=== PATIENT | female | born 1945 | race Caucasian/White ===

== ENCOUNTER 2016-09-23 13:11 | Emergency (ER) | payer OTHER, MEDICAID ==
[~2016-09-23 13:11] MED LIST: ALLERGY10 M3 PO; LOSARTAN POTASS1 TA6 PO; METFORMIN HCL500 MG PO; PROPRANOLOL HCL20 MG PO
[2016-09-23 14:17] LABS: microscopic required? YES; urine erythrocyte NEGATIVE (NEGATIVE)
[2016-09-23 14:21] LABS: BASOPHIL % 0.5 % (0-2); PLATELET COUNT 248 x10^3mcL (130-400); RED CELL DISTRIBUTION WIDTH 13.6 % (11.5-14.5)
[2016-09-23 14:38] LABS: CALCIUM 9.2 mg/dL (8.5-10.1); CHLORIDE SERUM 105 mmol/L (98-107); CREATININE SERUM 0.8 mg/dL (0.6-1.0); GFR1 > 60 mL/min; GLUCOSE SERUM 104 mg/dL (74-106); POTASSIUM SERUM 3.5 mmol/L (3.5-5.1); SODIUM SERUM 145 mmol/L (136-145)
[2016-09-23 14:43] LABS: ALBUMIN 3.7 g/dL (3.4-5.0); ALKALINE PHOSPHATASE 85 U/L (46-116); ALT/SGPT 28 U/L (14-59); AST/SGOT 18 U/L (15-37); BILIRUBIN TOTAL 0.6 mg/dL (0.20-1.00); TOTAL PROTEIN, SERUM 7.5 g/dL (6.4-8.2)
[2016-09-23 15:36] VITALS: BP 123/51
== END 2016-09-23 15:36 | disposition home or self-care (01) ==
LOC: ED 13:11
PROVIDERS: Emergency Medicine
DX: J18.9 Pneumonia, unspecified organism (principal); M79.1 Myalgia; I10 Essential (primary) hypertension; Z88.2 Allergy status to sulfonamides
CPT/HCPCS: 83880; J0696; J1885; J7613; J7644

== ENCOUNTER 2016-10-14 07:10 | Emergency (ER) | payer OTHER, MEDICAID ==
[~2016-10-14] VITALS: Ht 172.7 cm; Wt 79.8 kg
[2016-10-14 07:44] LABS: BASOPHIL % 0.8 % (0-2); PLATELET COUNT 239 x10^3mcL (130-400); RED CELL DISTRIBUTION WIDTH 13.7 % (11.5-14.5)
[2016-10-14 07:55] LABS: CALCIUM 9.1 mg/dL (8.5-10.1); CARBON DIOXIDE 24.6 mmol/L (21-32); CHLORIDE SERUM 104 mmol/L (98-107); CREATININE SERUM 0.9 mg/dL (0.6-1.0); GFR1 > 60 mL/min; GLUCOSE SERUM 169 mg/dL (74-106); POTASSIUM SERUM 3.8 mmol/L (3.5-5.1); SODIUM SERUM 140 mmol/L (136-145)
[2016-10-14 08:00] LABS: ALBUMIN 3.8 g/dL (3.4-5.0); BILIRUBIN TOTAL 0.42 mg/dL (0.20-1.00); TOTAL PROTEIN, SERUM 7.3 g/dL (6.4-8.2)
[2016-10-14 08:01] LABS: ALKALINE PHOSPHATASE 105 U/L (46-116); ALT/SGPT 29 U/L (14-59); AST/SGOT 16 U/L (15-37); CHOLESTEROL 207 mg/dL (<200); CHOLESTEROL/HDL RATIO 3.7; HDL CHOLESTEROL 56 mg/dL (40-60); LIPASE 129 IU/L (73-393); TRIGLYCERIDES 137 mg/dL (<150)
[2016-10-14 08:08] LABS: T3 TOTAL 1.13 ng/mL
[2016-10-14 08:19] LABS: FREE T4 0.85 ng/dL (0.76-1.46); FREE THYROXINE INDEX 2.2 ug/dL (1.4-4.5); T4(THYROXINE) 6.4 ug/dL (4.7-13.3)
[2016-10-14 08:38] LABS: microscopic required? YES; urine erythrocyte NEGATIVE (NEGATIVE)
[2016-10-14 09:27] VITALS: BP 126/75
== END 2016-10-14 09:27 | disposition home or self-care (01) ==
LOC: ED 07:10
PROVIDERS: Specialist
DX: I10 Essential (primary) hypertension (principal)
CPT/HCPCS: 83880; 84439; J7030; Q0092

== ENCOUNTER 2016-11-04 18:50 | Emergency (ER) | payer OTHER, MEDICAID ==
[~2016-11-04] VITALS: Ht 172.7 cm; Wt 71.0 kg
[2016-11-04 21:20] VITALS: BP 135/65
== END 2016-11-04 21:20 | disposition home or self-care (01) ==
LOC: ED 18:50
DX: R00.2 Palpitations (principal); R11.0 Nausea; I10 Essential (primary) hypertension; I48.91 Unspecified atrial fibrillation; Z79.1 Long term (current) use of non-steroidal anti-inflammatories (NSAID); Z79.899 Other long term (current) drug therapy; Z88.2 Allergy status to sulfonamides

== ENCOUNTER 2016-12-26 22:00 | Emergency (ER) | payer OTHER, MEDICAID ==
[2016-12-27 00:05] LABS: CALCIUM 9.1 mg/dL (8.5-10.1); CARBON DIOXIDE 30.2 mmol/L (21-32); POTASSIUM SERUM 3.7 mmol/L (3.5-5.1)
[2016-12-27 00:07] LABS: BASOPHIL % 0.6 % (0-2); PLATELET COUNT 196 x10^3mcL (130-400); RED CELL DISTRIBUTION WIDTH 14.3 % (11.5-14.5)
[2016-12-27 00:18] LABS: ALBUMIN 3.7 g/dL (3.4-5.0); BILIRUBIN TOTAL 0.3 mg/dL (0.20-1.00); T4(THYROXINE) 5.6 ug/dL (4.7-13.3); TOTAL PROTEIN, SERUM 7.2 g/dL (6.4-8.2)
[2016-12-27 01:49] VITALS: BP 133/72
== END 2016-12-27 01:48 | disposition home or self-care (01) ==
LOC: ED 22:00
PROVIDERS: Emergency Medicine
DX: R00.0 Tachycardia, unspecified (principal); Z88.2 Allergy status to sulfonamides
CPT/HCPCS: 36415

== ENCOUNTER 2016-12-28 14:35 | Emergency (ER) | payer OTHER, MEDICAID ==
[2016-12-28 15:37] LABS: BASOPHIL % 0.6 % (0-2); CALCIUM 9.1 mg/dL (8.5-10.1); CARBON DIOXIDE 27.5 mmol/L (21-32); CHLORIDE SERUM 104 mmol/L (98-107); CREATININE SERUM 0.9 mg/dL (0.6-1.0); GFR1 > 60 mL/min; GLUCOSE SERUM 138 mg/dL (74-106); PLATELET COUNT 227 x10^3mcL (130-400); POTASSIUM SERUM 3.9 mmol/L (3.5-5.1); RED CELL DISTRIBUTION WIDTH 14.5 % (11.5-14.5); SODIUM SERUM 136 mmol/L (136-145)
[2016-12-28 15:41] LABS: ALBUMIN 3.9 g/dL (3.4-5.0); ALKALINE PHOSPHATASE 112 U/L (46-116); ALT/SGPT 24 U/L (14-59); AST/SGOT 15 U/L (15-37); BILIRUBIN TOTAL 0.5 mg/dL (0.20-1.00); TOTAL PROTEIN, SERUM 7.6 g/dL (6.4-8.2)
[2016-12-28 17:43] VITALS: BP 118/62
== END 2016-12-28 17:43 | disposition home or self-care (01) ==
LOC: ED 14:35
PROVIDERS: Emergency Medicine
DX: I48.0 Paroxysmal atrial fibrillation (principal); I10 Essential (primary) hypertension; Z88.2 Allergy status to sulfonamides
CPT/HCPCS: 83880; J3490; Q0092

== ENCOUNTER 2017-04-20 14:06 | Emergency (ER) | payer OTHER, MEDICAID ==
[2017-04-20 15:42] VITALS: BP 123/65
== END 2017-04-20 15:42 | disposition home or self-care (01) ==
LOC: ED 14:06
DX: J02.9 Acute pharyngitis, unspecified (principal); I10 Essential (primary) hypertension; I48.91 Unspecified atrial fibrillation; Z88.2 Allergy status to sulfonamides; Z86.79 Personal history of other diseases of the circulatory system

== ENCOUNTER 2018-02-12 02:46 | Emergency (ER) | payer OTHER, MEDICAID ==
[~2018-02-12] VITALS: Ht 172.7 cm; Wt 82.1 kg
[2018-02-12 02:53] VITALS: Ht 172.7 cm; Wt 82.1 kg
[2018-02-12 03:59] LABS: BASOPHIL % 0.7 % (0-2); PLATELET COUNT 214 x10^3mcL (130-400); RED CELL DISTRIBUTION WIDTH 12.4 % (11.5-14.5)
[2018-02-12 04:02] LABS: T3 TOTAL 1.13 ng/mL
[2018-02-12 04:21] LABS: ALBUMIN 3.9 g/dL (3.4-5.0); ALKALINE PHOSPHATASE 132 U/L (46-116); ALT/SGPT 27 U/L (14-59); AST/SGOT 17 U/L (15-37); BILIRUBIN TOTAL 0.34 mg/dL (0.20-1.00); CALCIUM 9.2 mg/dL (8.5-10.1); CARBON DIOXIDE 26.2 mmol/L (21-32); CHLORIDE SERUM 106 mmol/L (98-107); CREATININE SERUM 0.9 mg/dL (0.6-1.0); GLUCOSE SERUM 188 mg/dL (74-106); HDL CHOLESTEROL 53 mg/dL (40-60); LIPASE 155 IU/L (73-393); SODIUM SERUM 143 mmol/L (136-145); TOTAL PROTEIN, SERUM 7.6 g/dL (6.4-8.2); TRIGLYCERIDES 106 mg/dL (<150)
[2018-02-12 04:23] LABS: CHOLESTEROL 221 mg/dL (<200); CHOLESTEROL/HDL RATIO 4.2
[2018-02-12 04:36] LABS: FREE T4 0.78 ng/dL (0.76-1.46); FREE THYROXINE INDEX 2.2 ug/dL (1.4-4.5); T4(THYROXINE) 6.3 ug/dL (4.7-13.3)
[2018-02-12 05:03] VITALS: BP 126/67
[2018-02-12 05:32] LABS: UA SPECIFIC GRAVITY 1.015 (1.005-1.035); microscopic required? YES; urine erythrocyte NEGATIVE (NEGATIVE)
== END 2018-02-12 05:03 | disposition home or self-care (01) ==
LOC: ED 02:46
PROVIDERS: Specialist
DX: R00.2 Palpitations (principal); I10 Essential (primary) hypertension; F41.9 Anxiety disorder, unspecified; I48.91 Unspecified atrial fibrillation; Z88.2 Allergy status to sulfonamides
CPT/HCPCS: 83880; 84439; J2405

== ENCOUNTER 2018-02-12 12:53 | Emergency (ER) | payer OTHER, MEDICAID ==
[~2018-02-12] VITALS: Ht 172.7 cm; Wt 82.1 kg
[2018-02-12 13:02] VITALS: Ht 172.7 cm; Wt 82.1 kg
[2018-02-12 13:24] LABS: BASOPHIL % 0.6 % (0-2); PLATELET COUNT 242 x10^3mcL (130-400); RED CELL DISTRIBUTION WIDTH 12.6 % (11.5-14.5)
[2018-02-12 13:51] LABS: CALCIUM 9.1 mg/dL (8.5-10.1); CARBON DIOXIDE 27.7 mmol/L (21-32); CHLORIDE SERUM 104 mmol/L (98-107); CREATININE SERUM 0.9 mg/dL (0.6-1.0); GLUCOSE SERUM 103 mg/dL (74-106); POTASSIUM SERUM 3.9 mmol/L (3.5-5.1); SODIUM SERUM 139 mmol/L (136-145)
[2018-02-12 14:04] LABS: MAGNESIUM 2.1 mg/dL (1.8-2.4)
[2018-02-12 14:39] VITALS: BP 111/74
== END 2018-02-12 15:03 | disposition home or self-care (01) ==
LOC: ED 12:53
PROVIDERS: Emergency Medicine
DX: I10 Essential (primary) hypertension (principal); E03.9 Hypothyroidism, unspecified; I48.91 Unspecified atrial fibrillation; F41.9 Anxiety disorder, unspecified; Z88.2 Allergy status to sulfonamides
CPT/HCPCS: G0480; J2060; J7030

== ENCOUNTER 2018-02-27 03:51 | Emergency (ER) | payer OTHER, MEDICAID ==
[~2018-02-27] VITALS: Ht 172.7 cm; Wt 80.7 kg
[2018-02-27 03:54] VITALS: Ht 172.7 cm; Wt 80.7 kg
[2018-02-27 04:57] LABS: microscopic required? YES; urine erythrocyte TRACE (NEGATIVE)
[2018-02-27 05:03] LABS: BASOPHIL % 0.9 % (0-2); PLATELET COUNT 198 x10^3mcL (130-400); RED CELL DISTRIBUTION WIDTH 13.5 % (11.5-14.5)
[2018-02-27 05:08] LABS: CALCIUM 9.4 mg/dL (8.5-10.1); CARBON DIOXIDE 30.8 mmol/L (21-32); CHLORIDE SERUM 104 mmol/L (98-107); GLUCOSE SERUM 127 mg/dL (74-106); POTASSIUM SERUM 3.8 mmol/L (3.5-5.1); SODIUM SERUM 138 mmol/L (136-145)
[2018-02-27 05:12] LABS: ALBUMIN 4.1 g/dL (3.4-5.0); ALKALINE PHOSPHATASE 135 U/L (46-116); ALT/SGPT 30 U/L (14-59); AST/SGOT 18 U/L (15-37); BILIRUBIN TOTAL 0.4 mg/dL (0.20-1.00); TOTAL PROTEIN, SERUM 7.8 g/dL (6.4-8.2)
[2018-02-27 05:23] LABS: FREE T4 0.94 ng/dL (0.76-1.46)
[2018-02-27 06:19] VITALS: BP 130/74
== END 2018-02-27 06:19 | disposition home or self-care (01) ==
LOC: ED 03:51
PROVIDERS: Emergency Medicine
DX: N39.0 Urinary tract infection, site not specified (principal); I10 Essential (primary) hypertension; F41.9 Anxiety disorder, unspecified; I48.91 Unspecified atrial fibrillation; Z88.2 Allergy status to sulfonamides
CPT/HCPCS: 36415; 84439

== ENCOUNTER 2018-03-01 21:53 | Emergency (ER) | payer OTHER, MEDICAID ==
[2018-03-01 22:13] VITALS: BP 165/85; Ht 172.7 cm
== END 2018-03-01 23:40 | disposition left against medical advice (07) ==
LOC: ED 21:53
DX: Z53.21 Procedure and treatment not carried out due to patient leaving prior to being seen by health care provider (principal)

== ENCOUNTER 2018-03-14 23:36 | Emergency (ER) | payer OTHER, MEDICAID ==
[~2018-03-14] VITALS: Ht 172.7 cm; Wt 80.3 kg
[2018-03-14 23:51] VITALS: Ht 172.7 cm; Wt 80.3 kg
[2018-03-15 01:30] VITALS: BP 117/70
== END 2018-03-15 01:30 | disposition home or self-care (01) ==
LOC: ED 23:36
DX: I10 Essential (primary) hypertension (principal); N39.0 Urinary tract infection, site not specified; F41.9 Anxiety disorder, unspecified; Z88.2 Allergy status to sulfonamides

== ENCOUNTER 2018-03-21 17:48 | Emergency (ER) | payer OTHER, MEDICAID ==
[~2018-03-21] VITALS: Ht 172.7 cm; Wt 78.0 kg
[2018-03-21 17:57] VITALS: Ht 172.7 cm; Wt 78.0 kg
[2018-03-21 18:36] LABS: BASOPHIL % 1.3 % (0-2); PLATELET COUNT 205 x10^3mcL (130-400); RED CELL DISTRIBUTION WIDTH 13.5 % (11.5-14.5)
[2018-03-21 19:02] LABS: CALCIUM 8.6 mg/dL (8.5-10.1); CARBON DIOXIDE 29.1 mmol/L (21-32); CHLORIDE SERUM 104 mmol/L (98-107); CREATININE SERUM 0.9 mg/dL (0.6-1.0); GLUCOSE SERUM 132 mg/dL (74-106); POTASSIUM SERUM 3.6 mmol/L (3.5-5.1); SODIUM SERUM 139 mmol/L (136-145)
[2018-03-21 19:07] LABS: ALBUMIN 3.9 g/dL (3.4-5.0); ALKALINE PHOSPHATASE 128 U/L (46-116); ALT/SGPT 28 U/L (14-59); AST/SGOT 16 U/L (15-37); BILIRUBIN TOTAL 0.46 mg/dL (0.20-1.00); TOTAL PROTEIN, SERUM 7.3 g/dL (6.4-8.2)
[2018-03-21 19:09] LABS: T3 TOTAL 1.04 ng/mL
[2018-03-21 19:31] LABS: FREE T4 0.9 ng/dL (0.76-1.46); FREE THYROXINE INDEX 2.4 ug/dL (1.4-4.5); T4(THYROXINE) 6.9 ug/dL (4.7-13.3)
[2018-03-21 20:09] VITALS: BP 127/82
== END 2018-03-21 20:09 | disposition home or self-care (01) ==
LOC: ED 17:48
PROVIDERS: Emergency Medicine
DX: R03.0 Elevated blood-pressure reading, without diagnosis of hypertension (principal); I48.91 Unspecified atrial fibrillation; R00.2 Palpitations; F41.9 Anxiety disorder, unspecified; Z88.2 Allergy status to sulfonamides
CPT/HCPCS: 36415; 84439; Q0092

== ENCOUNTER 2018-03-27 05:20 | Emergency (ER) | payer OTHER, MEDICAID ==
[~2018-03-27] VITALS: Ht 172.7 cm; Wt 72.6 kg
[2018-03-27 05:29] VITALS: Ht 172.7 cm; Wt 72.6 kg
[2018-03-27 06:45] LABS: BASOPHIL % 0.9 % (0-2); PLATELET COUNT 186 x10^3mcL (130-400); RED CELL DISTRIBUTION WIDTH 13.2 % (11.5-14.5)
[2018-03-27 06:46] LABS: CARBON DIOXIDE 28.2 mmol/L (21-32); CHLORIDE SERUM 105 mmol/L (98-107); CREATININE SERUM 0.9 mg/dL (0.6-1.0); GLUCOSE SERUM 135 mg/dL (74-106); POTASSIUM SERUM 3.3 mmol/L (3.5-5.1); SODIUM SERUM 142 mmol/L (136-145)
[2018-03-27 06:49] LABS: ALKALINE PHOSPHATASE 124 U/L (46-116); ALT/SGPT 29 U/L (14-59); AMYLASE 28 U/L (25-115); AST/SGOT 17 U/L (15-37); BILIRUBIN TOTAL 0.68 mg/dL (0.20-1.00); LIPASE 111 IU/L (73-393); TOTAL PROTEIN, SERUM 7.6 g/dL (6.4-8.2)
[2018-03-27 06:53] LABS: CHOLESTEROL 210 mg/dL (<200); HDL CHOLESTEROL 62 mg/dL (40-60)
[2018-03-27 07:40] VITALS: BP 111/63
[2018-03-27 09:17] LABS: UA SPECIFIC GRAVITY <=1.005 (1.005-1.035); microscopic required? YES; urine erythrocyte NEGATIVE (NEGATIVE)
[2018-03-27 09:32] LABS: AMPHETAMINE QUAL UR NONE DETECTED (See below)
== END 2018-03-27 07:46 | disposition left against medical advice (07) ==
LOC: ED 05:20
PROVIDERS: Emergency Medicine
DX: F41.9 Anxiety disorder, unspecified (principal); R00.2 Palpitations; I10 Essential (primary) hypertension; I48.91 Unspecified atrial fibrillation; Z79.01 Long term (current) use of anticoagulants; Z98.890 Other specified postprocedural states; Z98.51 Tubal ligation status; Z90.710 Acquired absence of both cervix and uterus; Z88.2 Allergy status to sulfonamides
CPT/HCPCS: 36415; 83880

== ENCOUNTER 2018-04-04 02:56 | Emergency (ER) | payer OTHER, MEDICAID ==
[~2018-04-04] VITALS: Ht 172.7 cm; Wt 76.4 kg
[2018-04-04 03:58] VITALS: BP 133/61
== END 2018-04-04 03:58 | disposition home or self-care (01) ==
LOC: ED 02:56
DX: I10 Essential (primary) hypertension (principal); F41.9 Anxiety disorder, unspecified; I48.91 Unspecified atrial fibrillation; Z98.51 Tubal ligation status; Z90.710 Acquired absence of both cervix and uterus; Z88.2 Allergy status to sulfonamides

== ENCOUNTER 2018-04-22 07:37 | Emergency (ER) | payer OTHER, MEDICAID ==
[~2018-04-22] VITALS: Ht 172.7 cm; Wt 73.5 kg
[2018-04-22 07:44] VITALS: Ht 172.7 cm; Wt 73.5 kg
[2018-04-22 08:42] VITALS: BP 128/61
== END 2018-04-22 08:42 | disposition home or self-care (01) ==
LOC: ED 07:37
DX: I10 Essential (primary) hypertension (principal); F41.9 Anxiety disorder, unspecified; Z98.51 Tubal ligation status; Z90.710 Acquired absence of both cervix and uterus; Z98.890 Other specified postprocedural states; Z88.2 Allergy status to sulfonamides

== ENCOUNTER 2018-04-22 21:01 | Emergency (ER) | payer OTHER, MEDICAID ==
[~2018-04-22] VITALS: Ht 172.7 cm; Wt 74.4 kg
[2018-04-22 21:08] VITALS: Ht 172.7 cm; Wt 74.4 kg
[2018-04-23 00:24] VITALS: BP 121/67
== END 2018-04-23 00:25 | disposition home or self-care (01) ==
LOC: ED 21:01
DX: M41.84 Other forms of scoliosis, thoracic region (principal); I10 Essential (primary) hypertension; F41.9 Anxiety disorder, unspecified; Z90.710 Acquired absence of both cervix and uterus; Z98.51 Tubal ligation status; Z98.890 Other specified postprocedural states; Z88.2 Allergy status to sulfonamides

== ENCOUNTER 2018-06-09 00:14 | Emergency (ER) | payer MEDICARE, MEDICAID ==
[~2018-06-09] VITALS: Ht 172.7 cm; Wt 74.4 kg
[2018-06-09 00:24] VITALS: Ht 172.7 cm; Wt 74.4 kg
[2018-06-09 00:42] LABS: BASOPHIL % 1.1 % (0-2); PLATELET COUNT 195 x10^3mcL (130-400); RED CELL DISTRIBUTION WIDTH 13.4 % (11.5-14.5)
[2018-06-09 00:54] LABS: CALCIUM 8.9 mg/dL (8.5-10.1); CARBON DIOXIDE 30.7 mmol/L (21-32); CHLORIDE SERUM 102 mmol/L (98-107); GLUCOSE SERUM 118 mg/dL (74-106); POTASSIUM SERUM 3.5 mmol/L (3.5-5.1); SODIUM SERUM 140 mmol/L (136-145)
[2018-06-09 01:03] LABS: ALBUMIN 3.9 g/dL (3.4-5.0); ALKALINE PHOSPHATASE 117 U/L (46-116); ALT/SGPT 26 U/L (14-59); AST/SGOT 17 U/L (15-37); CHOLESTEROL 125 mg/dL (<200); HDL CHOLESTEROL 61 mg/dL (40-60); PHOSPHOROUS 3.8 mg/dL (2.5-4.9); TOTAL PROTEIN, SERUM 7.4 g/dL (6.4-8.2); URIC ACID 5.7 mg/dL (2.6-6.0)
[2018-06-09 01:36] VITALS: BP 147/77
== END 2018-06-09 01:36 | disposition home or self-care (01) ==
LOC: ED 00:14
PROVIDERS: Emergency Medicine
DX: R00.2 Palpitations (principal); I10 Essential (primary) hypertension; F41.9 Anxiety disorder, unspecified; I48.91 Unspecified atrial fibrillation; Z90.710 Acquired absence of both cervix and uterus; Z98.51 Tubal ligation status; Z88.2 Allergy status to sulfonamides; Z98.890 Other specified postprocedural states
CPT/HCPCS: 36415